=== PATIENT | female | born 1955 | race Caucasian/White ===

== ENCOUNTER → 2016-08-05 | Outpatient (CLI) | payer BC ==
[~2016-08-05] MED LIST: ALIGN4 MG; CALCIUM 500 +1 EAC2 PO; HYDROCODON-ACE1 EAC9 PO; MOBIC PO; NO MEDICATIONS; VITAMIN D1000 UNIT PO; WOMEN'S DAILY F1 TAB PO
--- NOTE | ~2016-08-05 | US128 ---
[id number] [address] [address] [id number] O MR#: [id number] Acc #: [id number] NAME: ABRAM AGUAYO : 1955 SEX: F STUDY DATE/TIME: 08/05/2016 11:44 UNIT: [facility]US ROOM: STUDY DESCRIPTION: Thyroid Attending Physician: Janine Bennett M.D. Referring Physician: Janine Bennett M.D. Ordering Physician: Janine Bennett M.D. Primary Care Physician: Lavelle Garvey M.D. MEDICAL IMAGING REPORT This report is preliminary unless electronic signature is present. EXAM Thyroid ultrasound 08/05/2016 COMPARISON STUDIES Prior study 04/16/2016 HISTORY Followup thyroid nodule. FINDINGS Right lobe of the gland is homogeneous in echo texture without nodule and normal in vascularity. The left lobe of the gland is homogeneous in echo texture and normal in vascularity. There are two 4-5 mm nodules, both hypoechoic and neither highly suspicious based on appearance here. IMPRESSION Tiny subcentimeter left lobe nodules probably cystic, no suspicious nodule. Both nodules on the left are about 4-5 mm in maximal dimension. Dictated by... Albert Rosario M.D. THIS IS AN ELECTRONICALLY VERIFIED REPORT Albert Rosario M.D. at 08/05/2016 7:06 PM Danielle TD: 08/05/2016 18:46 JOB #: [id number] MEDICAL IMAGING REPORT
== END | disposition home or self-care (01) ==
LOC: SGUS 11:32
DX: E04.1 Nontoxic single thyroid nodule (principal); E04.2 Nontoxic multinodular goiter
CPT/HCPCS: 76536

== ENCOUNTER → 2017-02-16 | Outpatient (CLI) | payer BC ==
--- NOTE | ~2017-02-16 | US128 ---
[id number] [address] [address] [id number] O MR#: [id number] Acc #: [id number] NAME: ABRAM AGUAYO : 1955 SEX: F STUDY DATE/TIME: 02/16/2017 8:11 UNIT: [facility]US ROOM: STUDY DESCRIPTION: US Thyroid Attending Physician: Markus Flynn M.D., not In [place]* Referring Physician: Markus Flynn M.D., not In [place]* Ordering Physician: Markus Flynn M.D., not In [place]* Primary Care Physician: Lavelle Garvey M.D. MEDICAL IMAGING REPORT This report is preliminary unless electronic signature is present. EXAM Thyroid ultrasound INDICATIONS Left thyroid nodule. This is a follow-up study, most recent study which was in August 2016. TECHNIQUE Breen-scale, color Doppler, spectral Doppler waveform analysis was performed through the thyroid gland. FINDINGS Right lobe measures 1 x 1.5 x 4.6 cm. Left lobe measures 1.1 x 1.1 x 3.9 cm. Isthmus measures about 2 mm in thickness. No discrete nodule is identified within the right lobe of the thyroid gland which overall is relatively homogeneous in echotexture. 2 tiny nodules are seen within the left lobe of the thyroid gland, 1 measures 3 x 4 x 5 mm and is probably a cyst. The other is of mixed solid and cystic and measures 4 x 5 x 5 mm. Both of these are unchanged when compared to the exam from April 2016. No new nodules are seen. IMPRESSION 2 nodules identified within the left lobe of the thyroid gland are stable when compared to April 2016. I would suggest a follow-up ultrasound in April 2018 to document a full 2 year stability. Dictated by... Raiza Rosas M.D. THIS IS AN ELECTRONICALLY VERIFIED REPORT Raiza Rosas M.D. at 02/17/2017 5:40 PM AFF/pcl TD: 02/16/2017 16:40 JOB #: [id number] MEDICAL IMAGING REPORT Page 1 of 1
== END | disposition home or self-care (01) ==
LOC: SGUS 02-08 08:00
DX: E04.1 Nontoxic single thyroid nodule (principal); E04.2 Nontoxic multinodular goiter
CPT/HCPCS: 76536